=== PATIENT | female | born 1940 | race Caucasian/White ===

== ENCOUNTER → 2016-09-05 | Outpatient (CLI) | payer OTHER ==
[~2016-09-05] VITALS: Ht 154.9 cm; Wt 62.6 kg
[~2016-09-05] MED LIST: ASPI1TAB PO; HYDR10TAB PO; NS 1,000 ML IV SCH; PROPOFOL 200 MG/20 ML VIAL As Ordered ONE; VITA-112 PO
--- NOTE | 2016-09-05 09:54 | ROOR ---
Patient Name: Lise Paula Procedure Date: 09/05/2016 9:14 AM Date of : 1940 Age: 76 Room: [facility] Gender: Female Note Status: Finalized Procedure: Colonoscopy Indications: Screening for colorectal malignant neoplasm Providers: Roc Carroll Jr, MD Referring MD: Ewelina Dong DO Requesting Provider: Medicines: Propofol per Anesthesia Complications: No immediate complications. Procedure: Pre-Anesthesia Assessment: - Prior to the procedure, a History and Physical was performed, and patient medications and allergies were reviewed. The patient is competent. The risks and benefits of the procedure and the sedation options and risks were discussed with the patient. All questions were answered and informed consent was obtained. Patient identification and proposed procedure were verified by the physician and the nurse in the pre-procedure area and in the procedure room. Mental Status Examination: alert and oriented. Airway Examination: normal oropharyngeal airway and neck mobility. Respiratory Examination: clear to auscultation. CV Examination: normal. ASA Grade Assessment: II - A patient with mild systemic disease. After reviewing the risks and benefits, the patient was deemed in satisfactory condition to undergo the procedure. The anesthesia plan was to use moderate sedation / analgesia (conscious sedation). Immediately prior to administration of medications, the patient was re-assessed for adequacy to receive sedatives. The heart rate, respiratory rate, oxygen saturations, blood pressure, adequacy of pulmonary ventilation, and response to care were monitored throughout the procedure. The physical status of the patient was re-assessed after the procedure. The Colonoscope was introduced through the anus and advanced to the cecum, identified by appendiceal orifice and ileocecal valve. The colonoscopy was performed without difficulty. The patient tolerated the procedure well. The quality of the bowel preparation was adequate and good. Findings: The perianal and digital rectal examinations were normal. Pertinent negatives include normal sphincter tone, no palpable rectal lesions and no anal lesion or abnormality was detected. Multiple small and large-mouthed diverticula were found in the sigmoid colon and descending colon. The rectum, recto-sigmoid colon, transverse colon, ascending colon, cecum, appendiceal orifice and ileocecal valve appeared normal. External and internal hemorrhoids were found during endoscopy. The hemorrhoids were medium-sized and Grade II (internal hemorrhoids that prolapse but reduce spontaneously). Impression: - Diverticulosis in the sigmoid colon and in the descending colon. - The rectum, recto-sigmoid colon, transverse colon, ascending colon, cecum, appendiceal orifice and ileocecal valve are normal. - External and internal hemorrhoids. - No specimens collected. Recommendation: - Repeat colonoscopy in 10 years for screening purposes. Roc Carroll MD Roc Carroll Jr, MD 09/05/2016 9:54:40 AM This report has been signed electronically. Number of Addenda: 0 Note Initiated On: 09/05/2016 9:14 AM Estimated Blood Loss: Estimated blood loss: none.
[2016-09-05 10:15] VITALS: BP 149/65
== END | disposition home or self-care (01) ==
LOC: M OPP 08:43
PROVIDERS: ATTEND Surgery
DX: Z12.11 Encounter for screening for malignant neoplasm of colon (principal); K57.30 Diverticulosis of large intestine without perforation or abscess without bleeding; K64.4 Residual hemorrhoidal skin tags; K64.1 Second degree hemorrhoids; I10 Essential (primary) hypertension; R12 Heartburn; I51.9 Heart disease, unspecified; F33.9 Major depressive disorder, recurrent, unspecified; F41.9 Anxiety disorder, unspecified; Z87.891 Personal history of nicotine dependence; Z79.899 Other long term (current) drug therapy; Z79.82 Long term (current) use of aspirin
CPT/HCPCS: 99156; 99157; G0121

== ENCOUNTER → 2016-10-29 | Outpatient (CLI) | payer OTHER ==
[~2016-10-29] MED LIST changes: -NS 1,000 ML IV SCH; -PROPOFOL 200 MG/20 ML VIAL As Ordered ONE
--- NOTE | 2016-10-30 07:39 | REP ---
NONCONTRAST CHEST CT: CLINICAL: Followup abnormal lung findings. COMPARISON: Outside examination dated 07/30/2016. FINDINGS: Two vague areas of non-solid ground glass density are appreciated in the left perihilar (images [id number]) and medial right lower lobes (images 46-52). These findings remain stable compared to prior examination and in all likelihood represent chronic changes. Previously noted atelectasis to the lingula has resolved and mild linear fibroatelectatic scarring to the medial right middle lobe are again identified and unchanged. No further significant acute pulmonary consolidation, nodule or mass lesion is appreciated. No pleural effusion/reaction or pneumothorax. Tracheobronchial tree is patent and mild bronchiectasis suggests chronic changes. Cardiomegaly is noted along with atherosclerotic changes to the coronary arteries and thoracic aorta which again appears mildly aneurysmal. The ascending thoracic aorta measures approximately 4.2 cm maximal diameter while the descending thoracic aorta measures approximately 3.3 cm maximal diameter. No obvious adenopathy. Surrounding musculoskeletal structures demonstrate age related degenerative changes without focal osseous abnormality. Limited evaluation of the upper abdomen demonstrates stable low density mass lesion involving the left adrenal gland measuring approximately 2.4 cm maximal diameter and most compatible with adenoma. Right adrenal gland demonstrates mild adenomatous hyperplastic changes without discrete mass lesion. IMPRESSION: 1. Vague non-solid ground glass densities in the left perihilar and medial right lower lobe regions unchanged from prior examination. Findings likely represent chronic scarring although active pathology cannot definitively be excluded and followup examination in 6-12 months may be warranted. 2. No significant new, acute mediastinal or pleuroparenchymal process appreciated. 3. 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 4. Left adrenal hypodense lesion compatible with benign adenoma as well as mild adenomatous hyperplastic changes to the right adrenal gland. Unreviewed
== END ==
LOC: M RAD 14:16
PROVIDERS: ATTEND Internal Medicine Pulmonary Disease
DX: R91.8 Other nonspecific abnormal finding of lung field (principal); I25.10 Atherosclerotic heart disease of native coronary artery without angina pectoris; E27.9 Disorder of adrenal gland, unspecified

== ENCOUNTER → 2017-04-17 | Outpatient (CLI) | payer OTHER ==
[~2017-04-17] MED LIST changes: +ISOVUE-370 76% 100ML VIAL (Q9967) As Ordered ONE
--- NOTE | 2017-04-17 09:56 | REP ---
CT angiography of the thoracic and abdominal aorta with IV contrast: Axial images are acquired with helical scanning and a reformatted sagittal, coronal and 3-D angiography projections. The ascending thoracic aorta is mildly dilated measuring 4.3 cm in diameter. The mid aortic isthmus measures 3.0 cm diameter. The proximal descending thoracic aorta measures 2.6 cm in diameter. The aorta measures 2.6 cm at the diaphragmatic hiatus. The upper abdominal aorta measures 2.6 cm in diameter. At the renal artery level. The aorta measures 1.7 cm in diameter. Just above the aortic bifurcation the aorta measures 1.9 cm in diameter. The proximal right iliac artery measures 1.1 cm in diameter of the proximal left iliac artery measures 1.4 cm in diameter. Impression: There is no aneurysm of the thoracic or abdominal aorta. The ascending thoracic aorta is mildly dilated. The thoracic and abdominal aorta are tortuous. There is no stenosis of the celiac artery, superior mesenteric artery, inferior mesenteric artery or renal arteries. CT of the chest: There are no infiltrates or effusions. There are no masses or nodules. There is no mediastinal, hilar or axillary adenopathy. There is occasional calcified atheroma throughout the aorta. Cardiac size is enlarged. There is no pericardial effusion. CT of the abdomen, pelvis not included: The hepatic parenchyma is homogeneous. The gallbladder is unremarkable. The pancreas and spleen are normal size and unremarkable. The adrenals, kidneys are unremarkable. There is no bowel distension. Mesentery is unremarkable. 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 Impression: Essentially negative CT of the chest and abdomen. Signed by tEhan Raines MD 04/17/2017 09:48 A
== END ==
LOC: M RAD 08:20
PROVIDERS: ATTEND Internal Medicine Interventional Cardiology
DX: I71.2 Thoracic aortic aneurysm, without rupture (principal)
CPT/HCPCS: 71275; 74160; Q9967

== ENCOUNTER → 2018-11-09 | Outpatient (CLI) | payer MEDICARE ==
[~2018-11-09] MED LIST changes: -ASPI1TAB PO; +ASPI81TA26 PO; -ISOVUE-370 76% 100ML VIAL (Q9967) As Ordered ONE
[2018-11-09 10:00] LABS: BASO # 0.1 10^3/uL (0.0-0.2); BASO % 0.4 % (0.0-1.0); EOS # 0.1 10^3/uL (0.0-0.50); EOS % 0.9 % (0.0-3.0); HEMATOCRIT 37.7 % (36.0-47.0); HEMOGLOBIN 12.2 g/dl (12.0-15.5); LYMPH # 2.1 10^3/uL (1.5-4.5); LYMPH % 17.7 % (24.0-44.0); MEAN CORPUSCULAR HEMOGLOBIN 31.8 pg (27.0-33.0); MEAN CORPUSCULAR HGB CONC 32.4 g/dl (32.0-36.5); MEAN CORPUSCULAR VOLUME 98.2 fl (80.0-96.0); MONO # 0.6 10^3/uL (0.0-0.8); MONO % 5.2 % (0.0-5.0); NEUTROPHILS # 8.7 10^3/uL (1.8-7.7); NEUTROPHILS % 75.2 % (36.0-66.0); PLATELET COUNT, AUTOMATED 327 10^3/uL (150-450); RED BLOOD COUNT 3.84 10^6/uL (4.00-5.40); WHITE BLOOD COUNT 11.6 10^3/uL (4.0-10.0)
[2018-11-09 10:19] LABS: CALCIUM LEVEL 9.9 MG/DL (8.8-10.2); CREATININE FOR GFR 1.1 MG/DL (0.55-1.30); GLOMERULAR FILTRATION RATE 51.1 (>39); POTASSIUM SERUM 4.3 MEQ/L (3.5-5.1)
--- NOTE | 2018-11-09 11:29 | ECGEPIP ---
Stationary ECG Study [facility] Test Date: 2018-11-09 Pat Name: MIHAELA ZAIDI Department: Room: - Gender: F Personal Care Worker: RF : 1940 Requested By: Ewelina Dong Order Number: [id number] Reading MD: Payal Arroyo Measurements Intervals [place] Rate: 56 P: 58 DE: 126 QRS: 24 QRSD: 98 T: 40 QT: 418 QTc: 405 Interpretive Statements SINUS BRADYCARDIA T WAVE ABN V2 NO PRIOR Electronically Signed On 11-09-2018 11:28:45 EDT by Payal Arroyo
== END ==
LOC: M LAB 08:59
PROVIDERS: ATTEND Family Medicine
DX: I10 Essential (primary) hypertension (principal); R22.9 Localized swelling, mass and lump, unspecified

== ENCOUNTER → 2019-01-11 | Outpatient (REF) | payer MEDICARE ==
[~2019-01-11] MED LIST changes: +LOSA100T5 PO; +POTA10CA32 PO
[2019-01-11 17:14] LABS: BASO # 0.1 10^3/uL (0.0-0.2); BASO % 0.7 % (0.0-1.0); EOS # 0.1 10^3/uL (0.0-0.50); HEMATOCRIT 38.8 % (36.0-47.0); HEMOGLOBIN 12.8 g/dl (12.0-15.5); LYMPH # 1.9 10^3/uL (1.5-4.5); LYMPH % 18.4 % (24.0-44.0); MEAN CORPUSCULAR HEMOGLOBIN 32.3 pg (27.0-33.0); MONO # 0.6 10^3/uL (0.0-0.8); MONO % 6.3 % (0.0-5.0); NEUTROPHILS # 7.4 10^3/uL (1.8-7.7); NEUTROPHILS % 73.1 % (36.0-66.0); PLATELET COUNT, AUTOMATED 303 10^3/uL (150-450); RED BLOOD COUNT 3.96 10^6/uL (4.00-5.40); WHITE BLOOD COUNT 10.2 10^3/uL (4.0-10.0)
[2019-01-11 17:19] LABS: ALBUMIN 4.2 GM/DL (3.2-5.2); BILIRUBIN,TOTAL 0.7 MG/DL (0.2-1.0); CHOLESTEROL RISK RATIO 3.161 (<5); CREATININE FOR GFR 1.21 MG/DL (0.55-1.30); GLOMERULAR FILTRATION RATE 45.8 (>39); POTASSIUM SERUM 3.4 MEQ/L (3.5-5.1); THYROID STIMULATING HORMONE 0.816 uIU/ML (0.358-3.740); TOTAL PROTEIN 6.8 GM/DL (6.4-8.2)
== END ==
LOC: M LAB REF 16:21
PROVIDERS: ATTEND Family Medicine
DX: Z00.00 Encounter for general adult medical examination without abnormal findings (principal); I71.2 Thoracic aortic aneurysm, without rupture; I35.1 Nonrheumatic aortic (valve) insufficiency; R26.89 Other abnormalities of gait and mobility; I10 Essential (primary) hypertension; R22.9 Localized swelling, mass and lump, unspecified

== ENCOUNTER 2019-01-18 09:14 | Day surgery (SDC) | payer MEDICARE ==
[~2019-01-18] VITALS: Ht 154.9 cm; Wt 67.8 kg
[~2019-01-18 09:14] MED LIST changes: +BACITRACIN OINT 30GM As Ordered ONE; +LR 1,000 ML IV ONE
[2019-01-18] MEDS ORDERED: ONDANSETRON 4MG/2ML VIAL (J2405) As Ordered ONE ×2 (10:32→13:19)
[2019-01-18] MEDS ORDERED: dexameTHASONE 4 MG/ML 1ML VIAL (J1100) As Ordered ONE (10:32)
[2019-01-18] MEDS ORDERED: ROCURONIUM BROMIDE 50 MG/5 ML VIAL As Ordered ONE (10:32)
[2019-01-18] MEDS ORDERED: PROPOFOL 200 MG/20 ML VIAL As Ordered ONE (10:32)
[2019-01-18] MEDS ORDERED: LIDOCAINE 2% INJ 100 MG/5 ML SDV (FOR ANES.) As Ordered ONE (10:32)
[2019-01-18] MEDS ORDERED: fentaNYL 250 MCG/5 ML INJECTION (J3010) As Ordered ONE (10:33)
[2019-01-18] MEDS ORDERED: MIDAZOLAM INJ 2 MG/2 ML VIAL (J2250) As Ordered ONE ×2 (10:33→13:55)
[2019-01-18] MEDS ORDERED: REMIFENTANIL 1MG 3ML VIAL As Ordered ONE (10:33)
[2019-01-18] MEDS: LIDOCAINE W/EPINEPHRINE 1% 20ML VIAL As Ordered ONE ×2 (11:26→12:23)
[2019-01-18] MEDS ORDERED: SUCCINYLCHOLINE 100 MG/5 ML SYRINGE (J0330) As Ordered ONE (11:50)
[2019-01-18] MEDS ORDERED: GLYCOPYRROLATE INJ 0.2 MG/ML 2 ML VIAL As Ordered ONE (12:04)
[2019-01-18] MEDS ORDERED: ePHEDrine SULFATE 25 MG/5 ML(5MG/ML) SYRINGE As Ordered ONE (12:07)
[2019-01-18] MEDS ORDERED: PHENYLephrine HCL 500 MCG/5 ML (100MCG/ML) SYRINGE (J2370) As Ordered ONE (12:09)
[2019-01-18] MEDS ORDERED: ACETAMINOPHEN 1000MG 100ML IV BTL (OFIRMEV) (J0131 PER 10MG) As Ordered ONE (12:37)
[2019-01-18] MEDS ORDERED: KETOROLAC 60 MG/2 ML VIAL (J1885) As Ordered ONE (12:39)
[2019-01-18] MEDS ORDERED: LR 1,000 ML IV SCH ×2 (13:15→13:30)
[2019-01-18] MEDS ORDERED: ACETAMINOPH W/CODEINE #3 TAB UD PO PRN (13:15)
[2019-01-18] MEDS ORDERED: ONDANSETRON 4MG/2ML VIAL (J2405) IV PRN (13:30)
[2019-01-18] MEDS ORDERED: fentaNYL 100 MCG/2 ML INJECTION (J3010) IV PRN (13:30)
[2019-01-18] MEDS ORDERED: METOCLOPRAMIDE INJ 10MG/2ML VIAL (J2765) IV PRN (13:30)
[2019-01-18] MEDS ORDERED: oxyCODONE 5MG TAB PO PRN (13:30)
[2019-01-18] MEDS ORDERED: MIDAZOLAM INJ 2 MG/2 ML VIAL (J2250) IV ONE (14:30)
[2019-01-18 17:45] VITALS: BP 160/78
--- NOTE | 2019-01-19 00:21 | RO ---
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 PROCEDURE: Resection tumor left side of face. SURGEON: Primitivo Leary MD LEARNING DESIGNER: ANESTHESIA: General anesthesia. DESCRIPTION OF PROCEDURE: Under general anesthesia with the patient intubated, I hooked up the electrodes for the nerve monitor. I marked out the incision. I infiltrated with the lidocaine with epinephrine. I made an incision superiorly, posteriorly and anteriorly. I went beneath the lesion and resected without any difficulty. Once this was done, the tissues were very friable. The skin tore easily, so what I did was I used #4-0 Vicryl and #4-0 Monocryl to close the deep layer and the skin was closed with #4-0 Prolene. I did undermine the tissue anteriorly, posteriorly, superiorly, inferiorly so that I could close the lesion without difficulty. Minimal blood loss. Patient extubated and transferred to the recovery room in excellent condition.
== END 2019-01-18 17:47 | disposition home or self-care (01) ==
LOC: M SDC 09:14
PROVIDERS: ATTEND Otolaryngology
DX: L72.0 Epidermal cyst (principal); I10 Essential (primary) hypertension; I71.2 Thoracic aortic aneurysm, without rupture; I35.1 Nonrheumatic aortic (valve) insufficiency; R26.89 Other abnormalities of gait and mobility; Z79.82 Long term (current) use of aspirin; Z79.899 Other long term (current) drug therapy; F32.9 Major depressive disorder, single episode, unspecified; Z87.891 Personal history of nicotine dependence
CPT/HCPCS: 11442; 88305; J0131; J0330; J1100; J1885; J2250; J2370; J2405; J2765; J3010

== ENCOUNTER → 2019-11-22 | Outpatient (REF) | payer MEDICARE ==
[~2019-11-22] MED LIST changes: -BACITRACIN OINT 30GM As Ordered ONE; -LR 1,000 ML IV ONE
[2019-11-22 17:55] LABS: PLATELET COUNT, AUTOMATED 326 10^3/uL (150-450)
[2019-11-22 18:10] LABS: INR 1.1; PROTHROMBIN TIME 13.9 SECONDS (11.8-14.0)
[2019-11-22 18:11] LABS: PARTIAL THROMBOPLASTIN TIME 31.1 SECONDS (25.0-38.4)
== END ==
LOC: M LAB REF 16:49
PROVIDERS: ATTEND Internal Medicine Pulmonary Disease
DX: Z01.812 Encounter for preprocedural laboratory examination (principal); Z79.01 Long term (current) use of anticoagulants

== ENCOUNTER → 2020-10-26 | Outpatient (REF) | payer MEDICARE ==
[~2020-10-26] MED LIST changes: +HYDR-3490 PO; +LOSA100T50 PO
[2020-10-26 16:42] LABS: BASO # 0.1 10^3/uL (0.0-0.2); BASO % 0.4 % (0.0-1.0); EOS # 0.1 10^3/uL (0.0-0.5); EOS % 0.6 % (0.0-3.0); HEMATOCRIT 37.3 % (36.0-47.0); HEMOGLOBIN 11.7 g/dl (12.0-15.5); LYMPH % 6.3 % (24.0-44.0); MEAN CORPUSCULAR HEMOGLOBIN 29.8 pg (27.0-33.0); MEAN CORPUSCULAR HGB CONC 31.4 g/dl (32.0-36.5); MEAN CORPUSCULAR VOLUME 94.9 fl (80.0-96.0); MONO # 1.1 10^3/uL (0.0-0.8); MONO % 6.7 % (2.0-8.0); NEUTROPHILS # 13.7 10^3/uL (1.5-8.5); NEUTROPHILS % 85.3 % (36.0-66.0); PLATELET COUNT, AUTOMATED 419 10^3/uL (150-450); RED BLOOD COUNT 3.93 10^6/uL (4.00-5.40); WHITE BLOOD COUNT 16.1 10^3/uL (4.0-10.0)
[2020-10-26 16:45] LABS: ALBUMIN 3.4 GM/DL (3.2-5.2); ALT/SGPT 12 U/L (12-78); BILIRUBIN,TOTAL 0.6 MG/DL (0.2-1.0); BLOOD UREA NITROGEN 13 MG/DL (7-18); CALCIUM LEVEL 9.7 MG/DL (8.8-10.2); CARBON DIOXIDE LEVEL 24 MEQ/L (21-32); CHLORIDE LEVEL 104 MEQ/L (98-107); CREATININE FOR GFR 0.89 MG/DL (0.55-1.30); GLOMERULAR FILTRATION RATE > 60.0 (>32); GLUCOSE, FASTING 93 MG/DL (70-100); POTASSIUM SERUM 4.2 MEQ/L (3.5-5.1); SODIUM LEVEL 136 MEQ/L (136-145); THYROID STIMULATING HORMONE 0.761 uIU/ML (0.358-3.740); TOTAL PROTEIN 6.9 GM/DL (6.4-8.2)
== END ==
LOC: M SFHCCLAY 09:48
PROVIDERS: ATTEND Family Medicine
DX: R91.1 Solitary pulmonary nodule (principal); I10 Essential (primary) hypertension; I80.01 Phlebitis and thrombophlebitis of superficial vessels of right lower extremity
CPT/HCPCS: 80053; 84443; 85025; G0463